=== PATIENT | male | born 2000 ===

== ENCOUNTER → 2023-04-04 10:40 | Outpatient (CLI) | payer BC, SELFPAY ==
--- NOTE | ~2023-04-04 | CT_ITS ---
EXAMINATION: CT abdomen pelvis wo/w con DATE: 04/04/2023 11:26 INDICATION: Microscopic hematuria TECHNIQUE: Computed tomography (CT) of the abdomen and pelvis was performed without and subsequently with 130 CC Omnipaque 350 intravenous contrast. Automated exposure control and iterative reconstructi on technique were employed. Exam dose: 2522.39 mGy-cm total exam DLP. COMPARISON: 04/04/2023 KUB FINDINGS: There are couple of small right lower lobe calcified pulmonary granulomas. The lung bases a re clear of infiltrate or consolidation. Normal heart size. No pericardial or pleural effusion. The liver, gallbladder, bile ducts, spleen, pancreas, pancreatic duct, and adrenal glands appear norm al. No urinary tract calculus or hydroureteronephrosis. No renal mass lesion or scarring or urinary tract calculus or hydroureteronephrosis. No abnormal filling defect of the renal collecting systems, urete rs or urinary bladder. No abnormal bladder wall thickening. Normal prostate gland and seminal vesicle s. Normal caliber of the abdominal aorta. No intraperitoneal or retroperitoneal or pelvic mass lesion or adenopathy or ascites. Normal appendix. No bowel obstruction, bowel wall thickening, pneumatosis. No free air. Included skeletal structures are unremarkable. IMPRESSION: Negative examination Reviewed, dictated and finalized at [facility]. Reviewed, dictated and finalized at [facility]. 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
--- NOTE | ~2023-04-04 | XR_ITS ---
XR abdomen/kub 1V DATE: 04/04/2023 11:26 INDICATION: Microscopic hematuria TECHNIQUE: 2 supine AP views COMPARISON: None FINDINGS: No visceromegaly or abnormal calcification is detected. The psoas shadows are intact. No bowel obstruction. IMPRESSION: Negative Reviewed, dictated and finalized at [facility]. Reviewed, dictated and finalized at [facility]. N SUPERVISOR IMPRESSION: Negative
== END ==
PROVIDERS: PCP Urology; Visit Provider Urology
DX: R31.29 Other microscopic hematuria (principal)
CPT/HCPCS: 74018; 74178; Q9967